=== PATIENT | male | born 1960 | race Caucasian/White ===

== ENCOUNTER 2016-08-30 09:27 | Day surgery (SDC) | payer OTHER ==
[~2016-08-30] VITALS: Ht 177.8 cm; Wt 119.7 kg
[~2016-08-30 09:27] MED LIST: ASPIR 8181 M1 PO; CELEXA10 MG PO; COREG25 M1 PO; DIAZEPAM5 MG PO; DOXAZOSIN MESYLA2 MG PO; FLOMAX0.4 MG PO; LASIX40 MG PO; LEXAPRO20 MG PO; LOSARTAN POTASS25 MG PO; METOPROLOL TART50 MG PO; NEURONTIN300 MG PO; NORVASC10 MG PO; ONDANSETRON HCL4 MG PO; OXAYDO5 MG PO; PLAVIX75 MG PO; PROTONIX40 MG PO; RENAL-VITE TAB0.8 MG PO; SENSIPAR90 MG PO; ULTRAM50 MG PO; VITAMIN C500 M1 PO; XIFAXAN550 MG PO
[2016-08-30 09:56] LABS: HEMATOCRIT 33.6 % (38.0-50.0); MCH 32.8 PG (29.0-34.0); MCHC 33.6 G/DL (30.0-36.0); MCV 97.7 FL (86-99); MEAN PLAT.VOLUME 10.7 uM^3 (9.0-12.4); PLATELET COUNT 144 K/uL (156-360); RBC DIS.WIDTH-CV 13.7 % (11.8-14.6); RBC DIS.WIDTH-SD 49.6 % (39-53); RED BLOOD COUNT 3.44 M/uL (4.00-5.50); WHITE BLOOD COUNT 10.2 K/uL (4.1-10.2)
[2016-08-30] MEDS ORDERED: BREO ELLIPTA I1 EACH IH (10:10)
[2016-08-30 10:19] VITALS: BP 131/65
[2016-08-30 10:26] LABS: ANION GAP 14 MEQ/L (2-14); CHLORIDE 96 MEQ/L (99-109); GFR ESTIMATE (CALCULATED) 9 mL/min/; GLUCOSE 91 mg/dL (70-99); SAMPLE HEMOLYSIS CHECK 0; SAMPLE ICTERIC CHECK 0; SAMPLE LIPEMIA CHECK 0; SODIUM 138 MEQ/L (136-147); UREA NITROGEN (BUN) 38 mg/dL (9-23)
[2016-08-30 11:30] LABS: METH RESISTANT S AUREUS PCR NEGATIVE (NEGATIVE); PROBE CHECK PASS; SPECIMEN PROCESSING CONTROL PASS
[2016-08-30 14:10] VITALS: BP 109/62
[2016-08-30 14:35] VITALS: BP 120/54
== END 2016-08-30 14:40 | disposition home or self-care (01) ==
LOC: SDC 09:27
PROVIDERS: Surgery
DX: T82.41XA Breakdown (mechanical) of vascular dialysis catheter, initial encounter (principal); I12.0 Hypertensive chronic kidney disease with stage 5 chronic kidney disease or end stage renal disease; N18.6 End stage renal disease; Z99.2 Dependence on renal dialysis; R94.31 Abnormal electrocardiogram [ECG] [EKG]; Z95.1 Presence of aortocoronary bypass graft; J44.9 Chronic obstructive pulmonary disease, unspecified; Z86.73 Personal history of transient ischemic attack (TIA), and cerebral infarction without residual deficits; Z95.5 Presence of coronary angioplasty implant and graft; Z88.2 Allergy status to sulfonamides; Z79.82 Long term (current) use of aspirin; Z79.02 Long term (current) use of antithrombotics/antiplatelets; Z87.891 Personal history of nicotine dependence
CPT/HCPCS: 80048; 85027; 87641; 93005; C2628; J0690; J1644; J2250; J2405; J2720; J3010